=== PATIENT | female | born 1985 | race Hispanic/Latino ===

== ENCOUNTER 2018-04-16 03:33 | Emergency (ER) | payer MEDICAID, OTHER ==
[2018-04-16] MEDS ORDERED: ACETAMINOPHEN EXTRA STRENGTH 500 MG TABLET ONE (04:41)
[2018-04-16] MEDS ORDERED: CEPHALEXIN 500 MG CAPSULE ONE (04:49)
== END 2018-04-16 05:32 | disposition home or self-care (01) ==
LOC: EDH 03:33
DX: L03.032 Cellulitis of left toe (principal); Z98.51 Tubal ligation status
CPT/HCPCS: 73660

== ENCOUNTER 2019-10-19 18:27 | Emergency (ER) | payer OTHER ==
[2019-10-19] MEDS ORDERED: ACETAMINOPHEN EXTRA STRENGTH 500 MG TABLET ONE (19:37)
== END 2019-10-19 23:02 | disposition home or self-care (01) ==
LOC: EDH 18:27
DX: U07.1 COVID-19 (principal); D72.819 Decreased white blood cell count, unspecified; R50.9 Fever, unspecified; R42 Dizziness and giddiness; R06.02 Shortness of breath
CPT/HCPCS: 36415; 71045; 80053; 81003; 82550; 83605; 83874; 84145; 84484; 85025; 85378; 85610; 85730; 87040 ×2; 87088; 93005; 96360; 99285; U0003